=== PATIENT | female | born 1985 | race Caucasian/White ===

== ENCOUNTER → 2017-06-29 | Outpatient (CLI) | payer BC ==
[~2017-06-29] MED LIST: CETI10CA PO; CHOL200049 PO; CYCL10TA9 PO; DOXY100C2 PO; ESOM40SU PO; ETHINYL ESTRADIOL PC; FERR-57 PO; FLUO40CA PO; GABA800T2 PO; HYDR-623 PO; HYDR-700 PO; LNZ600T PO; METH-290 PO; METH4TAB PO; MORP30TA16 PO; MPR22TI TP; MUPI22OI TP; NAPR-243 PO; NORGESTIMATE PC; PANT20TA2 PO; PRD20T PO; SPRN25T GT
[2017-06-29 11:06] LABS: BASOPHILS # (AUTO) 0.1 10^3/uL (0.0-0.1); BASOPHILS % (AUTO) 1 % (0-10); EOSINOPHILS # (AUTO) 0.1 10^3/uL (0.0-0.3); EOSINOPHILS % (AUTO) 2 % (0-10); LYMPHOCYTES # (AUTO) 1.9 X 10^3 (1.0-4.0); LYMPHOCYTES % (AUTO) 30 % (12-44); MEAN CORPUSCULAR HEMOGLOBIN 28 PG (25-34); MEAN CORPUSCULAR HGB CONC 33 G/DL (32-36); MEAN CORPUSCULAR VOLUME 86 FL (80-99); MEAN PLATELET VOLUME 10.5 FL (7.4-10.4); MONOCYTES # (AUTO) 0.5 X 10^3 (0.0-1.0); MONOCYTES % (AUTO) 8 % (0-12); NEUTROPHILS # (AUTO) 3.9 X 10^3 (1.8-7.8); NEUTROPHILS % (AUTO) 60 % (42-75); PLATELET COUNT 297 10^3/uL (130-400); RED CELL DISTRIBUTION WIDTH 13.4 % (10.0-14.5); WHITE BLOOD COUNT 6.5 10^3/uL (4.3-11.0)
[2017-06-29 11:20] LABS: ALANINE AMINOTRANSFERASE 23 U/L (0-55); ALBUMIN 4.1 GM/DL (3.2-4.5); ANION GAP 8 MMOL/L (5-14); ASPARTATE AMINO TRANSFERASE 18 U/L (5-34); BILIRUBIN,TOTAL 0.5 MG/DL (0.1-1.0); BLOOD UREA NITROGEN 11 MG/DL (7-18); BUN/CREATININE RATIO 14; CALCIUM 8.9 MG/DL (8.5-10.1); CARBON DIOXIDE 26 MMOL/L (21-32); CHLORIDE 105 MMOL/L (98-107); CREATININE SERUM 0.78 MG/DL (0.60-1.30); GFR ESTIMATED > 60; GLUCOSE 112 MG/DL (70-105); POTASSIUM 3.9 MMOL/L (3.6-5.0); SODIUM 139 MMOL/L (135-145); URIC ACID 5.4 MG/DL (2.6-7.2)
[2017-06-29 11:40] LABS: ERYTHROCYTE SEDIMENTATION RATE 11 MM/HR (0-20)
[2017-06-29 11:41] LABS: THYROID STIMULATING HORMONE 2.36 UIU/ML (0.35-4.94)
== END ==
LOC: LAB 10:45
PROVIDERS: ATTEND Family Medicine
DX: Z83.3 Family history of diabetes mellitus; R53.83 Other fatigue; M25.50 Pain in unspecified joint
CPT/HCPCS: 36415; 80053; 83036; 84439; 84443; 84550; 85025; 85652

== ENCOUNTER 2018-05-20 20:08 | Emergency (ER) | payer BC ==
[~2018-05-20] VITALS: Ht 167.6 cm; Wt 113.4 kg
--- OUTSIDE RECORDS SUMMARY | 2018-05-20 20:13 | XMS REPORT ---
Author BERTHA Skinner [employer] Address Unknown Phone Unavailable Care Team Providers Care Reconciling Clerk Name Role Phone BERTHA PAYAN CP Unavailable Allergies, Adverse Reactions, Alerts Substance Reaction Event Type sulfa drugs Info Not Available Drug Allergy Problems Problem Type Condition Code Onset Dates Condition Status Assessment Encounter for dental examination Z01.20 Active Problem Encounter for dental examination Z01.20 Active Medications Medication Code System Code Instructions Start Date End Date Status Dosage Spironolactone [facility] [address]-60 25 MG Orally Twice a day 1 tablet Hydrocodone-Acetaminophen [facility] [address]-70 10-325 MG Orally every 6 hrs 1 tablet as needed Gabapentin [facility] [address]-87 800 MG Orally Three times a day 1 tablet ZyrTEC [facility] 0 not defined Vitamin D [facility] 70695[address]39 400 UNIT Orally Once a day 2 capsules BuPROPion HCl [facility] [address]-04 100 MG Orally Twice a day 1 tablet MS Contin [facility] [address]-59 30 MG Orally every 12 hrs 1 tablet Procedures Procedure Coding System Code Date INTRAORL-PERIAPICAL 1 FILM 60096 CPT-4 D0220 Oct 01, 2015 INTRAORL-PERIAPICAL EA ADD FILM CPT-4 D0230 Oct 01, 2015 COMP ORAL EVALUATION - NEW/EST PT CPT-4 D0150 Oct 01, 2015 BITEWINGS - FOUR FILMS CPT-4 D0274 Oct 01, 2015 INTRAORL-PERIAPICAL EA ADD FILM CPT-4 D0230 Oct 01, 2015 TOPICAL FLUORIDE VARNISH CPT-4 D1206 Oct 01, 2015 PROPHYLAXIS - ADULT CPT-4 D1110 Oct 01, 2015 Vital Signs Date/Time: Oct 01, 2015 Blood Pressure Diastolic 65 mmHg Blood Pressure Systolic 115 mmHg Cardiac Monitoring Heart Rate 96 bpm Results No Known Results Summary Purpose [employer] Submission
--- OUTSIDE RECORDS SUMMARY | 2018-05-20 20:13 | XMS REPORT ---
Author Author DADA MUIR [facility] Address [address] [place] [address] Care Team Providers Care Digital X Ray Service Engineer Name Role Phone DADA MUIR Unavailable PROBLEMS Type Condition ICD9-CM Code [id number] Code Onset Dates Condition Status SNOMED Code Problem Encounter for dental examination Z01.20 Active [id number] ALLERGIES Substance Reaction Event Type Date Status sulfa drugs Unknown Drug Allergy Oct, Active SOCIAL HISTORY No smoking Hx information available PLAN OF CARE VITAL SIGNS Height 66 in 2016-11-09 Weight 249.6 lbs 2016-11-09 Temperature 97.8 degrees Fahrenheit 2016-11-09 Heart Rate 88 bpm 2016-11-09 Respiratory Rate 20 2016-11-09 BMI 40.28 kg/m2 2016-11-09 Blood pressure systolic 126 mmHg 2016-11-09 Blood pressure diastolic 80 mmHg 2016-11-09 MEDICATIONS Medication Instructions Dosage Frequency Start Date End Date Duration Status Vitamin D 400 UNIT Orally Once a day 2 capsules 24h Active Spironolactone 25 MG Orally Twice a day 1 tablet 12h Active ZyrTEC Active Gabapentin 800 MG Orally Three times a day 1 tablet 8h Active Hydrocodone-Acetaminophen 10-325 MG Orally every 6 hrs 1 tablet as needed 6h Active RESULTS No Results PROCEDURES Procedure Date Ordered Related Diagnosis Body Site FLUARIX QUAD P-FREE 3 AND UP .50 2015Nov 09, 2016 SINGLE IMMUNIZATION ADMIN Nov 09, 2016 IMMUNIZATIONS Vaccine Route Administration Date Status FLUZONE QUAD 3 AND UP 0.50 2015 IM Intramuscular Nov 09, 2016 Administered
--- OUTSIDE RECORDS SUMMARY | 2018-05-20 20:14 | XMS REPORT | Continuity of Care Document ---
Author Author [facility] Organization [facility] Address Unknown Phone Unavailable Allergies Active Description Code Type Severity Reaction Onset Reported/Identified Relationship to Patient Clinical Status Yes Sulfa (Sulfonamide Antibiotics) [id number] Drug Allergy Unknown N/A 2011 Medications There is no data. 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 04/18/2012 Ot 338.29 OTHER CHRONIC PAIN 04/18/2012 Ot 682.2 CELLULITIS OF TRUNK 04/18/2012 Ot 707.8 CHRONIC SKIN ULCER NEC 04/18/2012 Ot 714.30 JUV RHEUM ARTHRITIS NOS 01/09/2015 Ot 285.9 01/09/2015 Ot 719.40 01/09/2015 Ot 733.90 01/09/2015 Ot 780.79 05/14/2015 BOB REY MD Ot 530.11 REFLUX ESOPHAGITIS 05/14/2015 BOB REY MD Ot 535.40 OTH SPECIFIED GASTRITIS,W/O MENTION OF H 05/14/2015 BOB REY MD Ot 535.50 UNSP GASTRITIS GASTRODUODENITIS W/O ME 05/14/2015 BOB REY MD Ot 553.3 DIAPHRAGMATIC HERNIA 06/23/2016 Ot 285.9 ANEMIA NOS 06/23/2016 Ot 719.40 JOINT PAIN- UNSPEC 06/23/2016 Ot 733.90 BONE CARTILAGE DIS NOS 06/23/2016 Ot 780.79 OTH MALAISE FATIGUE 06/23/2016 BOB REY MD Ot V72.84 EXAM PRE-OPERATIVE NOS 06/24/2016 ANGELINE MARTINEZ MD Ot M54.2 CERVICALGIA 06/24/2016 ANGELINE MARTINEZ MD Ot M54.5 LOW BACK PAIN 07/09/2016 ANGELINE MARTINEZ MD Ot M54.2 CERVICALGIA 07/09/2016 ANGELINE MARTINEZ MD Ot M54.5 LOW BACK PAIN 07/14/2016 ANGELINE MARTINEZ MD Ot M54.2 CERVICALGIA 07/14/2016 ANGELINE MARTINEZ MD Ot M54.5 LOW BACK PAIN 07/15/2016 ANGELINE MARTINEZ MD Ot M54.2 CERVICALGIA 07/15/2016 ANGELINE MARTINEZ MD Ot M54.5 LOW BACK PAIN 08/03/2016 ANGELINE MARTINEZ MD Ot M54.2 CERVICALGIA 08/03/2016 ANGELINE MARTINEZ MD Ot M54.5 LOW BACK PAIN 11/08/2016 Ot 285.9 ANEMIA NOS 11/08/2016 Ot 719.40 JOINT PAIN- UNSPEC 11/08/2016 Ot 733.90 BONE CARTILAGE DIS NOS 11/08/2016 Ot 780.79 OTH MALAISE FATIGUE 11/08/2016 BOB REY MD Ot V72.84 EXAM PRE-OPERATIVE NOS 11/08/2016 ANGELINE MARTINEZ MD Ot M54.2 CERVICALGIA 11/08/2016 ANGELINE MARTINEZ MD Ot M54.5 LOW BACK PAIN 11/08/2016 ANGELINE MARTINEZ MD Ot M54.2 CERVICALGIA 11/08/2016 ANGELINE MARTINEZ MD Ot M54.5 LOW BACK PAIN 11/17/2016 Ot 285.9 ANEMIA NOS 11/17/2016 Ot 719.40 JOINT PAIN- UNSPEC 11/17/2016 Ot 733.90 BONE CARTILAGE DIS NOS 11/17/2016 Ot 780.79 OTH MALAISE FATIGUE 11/17/2016 BOB REY MD Ot V72.84 EXAM PRE-OPERATIVE NOS 11/17/2016 ANGELINE MARTINEZ MD Ot M54.2 CERVICALGIA 11/17/2016 ANGELINE MARTINEZ MD Ot M54.5 LOW BACK PAIN 11/17/2016 ANGELINE MARTINEZ MD Ot M54.2 CERVICALGIA 11/17/2016 ANGELINE MARTINEZ MD Ot M54.5 LOW BACK PAIN 11/18/2016 ANGELINE MARTINEZ MD Ot M54.2 CERVICALGIA 11/18/2016 WHITE MD, ANGELINE J Ot M54.5 LOW BACK PAIN 06/29/2017 Ot 285.9 ANEMIA NOS 06/29/2017 Ot 719.40 JOINT PAIN- UNSPEC 06/29/2017 Ot 733.90 BONE CARTILAGE DIS NOS 06/29/2017 Ot 780.79 OTH MALAISE FATIGUE 06/29/2017 CANDIDO BRAYD, BOB Ot V72.84 EXAM PRE-OPERATIVE NOS 06/29/2017 ANGELINE MARTINEZ MD Ot M54.2 CERVICALGIA 06/29/2017 ANGELINE MARTINEZ MD Ot M54.5 LOW BACK PAIN 07/06/2017 ORENDER DO, BLANCA S Ot M25.50 PAIN IN UNSPECIFIED JOINT 07/06/2017 ORENDER DO, BLANCA S Ot R53.83 OTHER FATIGUE 07/06/2017 ORENDER DO, BLANCA S Ot Z83.3 FAMILY HISTORY OF DIABETES MELLITUS 07/20/2017 ORENDER DO, BLANCA S Ot M25.50 PAIN IN UNSPECIFIED JOINT 07/20/2017 ORENDER DO, BLANCA S Ot R53.83 OTHER FATIGUE 07/20/2017 ORENDER DO, BLANCA S Ot Z83.3 FAMILY HISTORY OF DIABETES MELLITUS Procedures There is no data. Results Test Result Range Complete blood count (CBC) with automated white blood cell (WBC) differential - 06/29/17 10:58 Blood leukocytes automated count (number/volume) 6.5 10*3/uL 4.3-11.0 Blood erythrocytes automated count (number/volume) 4.70 10*6/uL 4.35-5.85 Venous blood hemoglobin measurement (mass/volume) 13.2 g/dL 11.5-16.0 Blood hematocrit (volume fraction) 41 % 35-52 Automated erythrocyte mean corpuscular volume 86 [foz_us] 80-99 Automated erythrocyte mean corpuscular hemoglobin (mass per erythrocyte) 28 pg 25-34 Automated erythrocyte mean corpuscular hemoglobin concentration measurement ( mass/volume) 33 g/dL 32-36 Automated erythrocyte distribution width ratio 13.4 % 10.0-14.5 Automated blood platelet count (count/volume) 297 10*3/uL 130-400 Automated blood platelet mean volume measurement 10.5 [foz_us] 7.4-10.4 Automated blood neutrophils/100 leukocytes 60 % 42-75 Automated blood lymphocytes/100 leukocytes 30 % 12-44 Blood monocytes/100 leukocytes 8 % 0-12 Automated blood eosinophils/100 leukocytes 2 % 0-10 Automated blood basophils/100 leukocytes 1 % 0-10 Blood neutrophils automated count (number/volume) 3.9 10*3 1.8-7.8 Blood lymphocytes automated count (number/volume) 1.9 10*3 1.0-4.0 Blood monocytes automated count (number/volume) 0.5 10*3 0.0-1.0 Automated eosinophil count 0.1 10*3/uL 0.0-0.3 Automated blood basophil count (count/volume) 0.1 10*3/uL 0.0-0.1 Comprehensive metabolic panel - 06/29/17 10:58 Serum or plasma sodium measurement (moles/volume) 139 mmol/L 135-145 Serum or plasma potassium measurement (moles/volume) 3.9 mmol/L 3.6-5.0 Serum or plasma chloride measurement (moles/volume) 105 mmol/L 98-107 Carbon dioxide 26 mmol/L 21-32 Serum or plasma anion gap determination (moles/volume) 8 mmol/L 5-14 Serum or plasma urea nitrogen measurement (mass/volume) 11 mg/dL 7-18 Serum or plasma creatinine measurement (mass/volume) 0.78 mg/dL 0.60-1.30 Serum or plasma urea nitrogen/creatinine mass ratio 14 NRG Serum or plasma creatinine measurement with calculation of estimated glomerular filtration rate > NRG Serum or plasma glucose measurement (mass/volume) 112 mg/dL 70-105 Serum or plasma calcium measurement (mass/volume) 8.9 mg/dL 8.5-10.1 Serum or plasma total bilirubin measurement (mass/volume) 0.5 mg/dL 0.1-1.0 Serum or plasma alkaline phosphatase measurement (enzymatic activity/volume) 47 U/L 40-136 Serum or plasma aspartate aminotransferase measurement (enzymatic activity/ volume) 18 U/L 5-34 Serum or plasma alanine aminotransferase measurement (enzymatic activity/volume ) 23 U/L 0-55 Serum or plasma protein measurement (mass/volume) 7.0 g/dL 6.4-8.2 Serum or plasma albumin measurement (mass/volume) 4.1 g/dL 3.2-4.5 Serum or plasma uric acid measurement (mass/volume) - 06/29/17 10:58 Serum or plasma uric acid measurement (mass/volume) 5.4 mg/dL 2.6-7.2 Erythrocyte sedimentation rate by westergren method - 06/29/17 10:58 Erythrocyte sedimentation rate by westergren method 11 mm 0-20 THYROID STIMULATING HORMONE - 06/29/17 10:58 THYROID STIMULATING HORMONE 2.36 u[iU]/mL 0.35-4.94 Serum or plasma thyroxine (T4) free measurement (mass/volume) - 06/29/17 10:58 Serum or plasma thyroxine (T4) free measurement (mass/volume) 0.89 ng/dL 0.70-1.48 Hemoglobin A1c - 06/29/17 10:58 Hemoglobin A1c 5.1 % 4.5-6.2 Encounters ACCT No. Visit Date/Time Discharge Status Pt. Type Provider Facility Loc./Unit Complaint [id number] 06/29/2017 10:45:00 06/29/2017 23:59:59 CLS Outpatient BLANCA GARCIA DO [facility] LAB FATIGUE,FAMILIAL DNA,ARTHRALGIA [id number] 08/03/2016 13:51:00 08/03/2016 14:52:00 DIS Outpatient ANGELINE MARTINEZ MD [facility] REHAB CERVICALGIA; [place] [id number] 07/05/2016 13:33:00 07/09/2016 17:00:00 DIS Outpatient ANGELINE MARTINEZ MD [facility] REHAB CERVICALGIA; [place] [id number] 06/23/2016 15:45:00 06/23/2016 23:59:59 CLS Outpatient ANGELINE MARTINEZ MD [facility] RAD LOW BACK PAIN, CERVICALGIA [id number] 05/14/2015 08:33:00 05/14/2015 12:25:00 DIS Outpatient BOB REY MD [facility] SDC REFLUX [id number] 05/13/2015 05:56:00 05/13/2015 23:59:59 CLS Outpatient BOB REY MD [facility] PREOP REFLUX [id number] 12/26/2014 10:32:00 Document Registration [id number] 04/14/2012 13:37:00 Document Registration 06/201605/01/2018 12:34:43 05/01/2018 23:59:59 [facility] Outpatient Blanca Garcia
--- OUTSIDE RECORDS SUMMARY | 2018-05-20 20:14 | XMS REPORT ---
Author Author ANGELINE MASON Organization [employer] Address Unknown Phone Unavailable Care Team Providers Care Ecology Teacher Name Role Phone ANGELINE MASON CP Unavailable Allergies No Known Allergies Problems Problem Type Condition Code Onset Dates Condition Status Problem Encounter for dental examination Z01.20 Active Medications Medication Code System Code Instructions Start Date End Date Status Dosage Amoxicillin [facility] [address]-40 500 MG Orally Every 6 houyrs Oct 01, 2015 Oct 11, 2015 1 capsule Results No Known Results Summary Purpose eClinicalWorks Submission
[2018-05-20 20:36] LABS: BILIRUBIN,URINE NEGATIVE (NEGATIVE); CLARITY,URINE SLIGHTLY CLOUDY; COLOR,URINE YELLOW; GLUCOSE, URINE (UA) NEGATIVE (NEGATIVE); KETONES,URINE 1+ (NEGATIVE); LEUKOCYTE ESTERASE ,URINE 3+ (NEGATIVE); NITRITE,URINE NEGATIVE (NEGATIVE); PH,URINE 6 (5-9); PROTEIN,URINE 1+ (NEGATIVE); UROBILINOGEN,URINE NORMAL (NORMAL)
[2018-05-20 20:48] LABS: BACTERIA,URINE TRACE /HPF
[2018-05-20] MEDS ORDERED: fentaNYL INJECTION 100 MCG/2 ML AMP IVP ONE ×2 (21:00→23:15)
--- NOTE | 2018-05-20 21:04 | ED General ---
General Chief Complaint: Abdominal/GI Problems Stated Complaint: PAIN IN BACK AND ABD,SOB Nursing Triage Note: Pt ambulated to rm 5 w/o difficulty. Pt c/o lower back pain that radiates to the abdomen bilateraly. 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 Pt denies bowel or bladder problems. Pt states she take hydrocodone 10/325 and double up on a dose and it did not help the pain at all. Nursing Sepsis Screen: No Definite Risk Source of Information: Patient Exam Limitations: No Limitations History of Present Illness Date Seen by Provider: May 20, 2018 Time Seen by Provider: 20:22 Initial Comments This 32-year-old woman presents to the emergency room with lower back pain radiating to the bilateral flanks and upper abdomen since yesterday. 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 Patient has chronic pain but states all of her usual methods of controlling pain have not worked. This includes heating pad, hydrocodone, naproxen, gabapentin, and Flexeril. She denies withdrawing from any of these medications. Her pain is worse with deep inspiration and is minimally impacted by palpation of the abdomen. She denies any nausea, vomiting , or constipation. She did have some diarrhea over the last 24 hours which is common for her if she does not sleep well. She denies any urinary or vaginal symptoms. Last menstrual period was April 25. She has reported history of rheumatoid arthritis, fibromyalgia, hiatal hernia and hypothyroidism. She does not see a aluminum polisher. Dr. Garcia is her primary care doctor. Allergies and Home Medications Allergies Coded Allergies: Sulfa (Sulfonamide Antibiotics) (Verified Allergy, Unknown, 04/14/12) Home Medications Cephalexin 500 Mg Capsule, 500 MG PO QID Prescribed by: NIKKI BERRIOS on 05/21/18 0055 Cetirizine Hcl 10 Mg Capsule, 10 MG PO BID, (Reported) Cholecalciferol (Vitamin D3) 2,000 Unit Tablet, 5,000 UNIT PO DAILY, (Reported) Ferrous Sulfate 325 Mg Tablet, 325 MG PO DAILY, (Reported) Fluoxetine Hcl 40 Mg Capsule, 1 EACH PO DAILY, (Reported) Gabapentin 800 Mg Tablet, 1 EACH PO BID, (Reported) Hydrocodone Bit/Acetaminophen 1 Tab Tablet, 1 EACH PO QID PRN for PAIN, ( Reported) Methylphenidate Hcl 10 Mg Tablet.sa, 10 MG PO DAILY, (Reported) Morphine Sulfate 30 Mg Tablet, 1 EACH PO Q12HR, (Reported) Pantoprazole Sodium 20 Mg Tablet.dr, 40 MG PO DAILY Prescribed by: BOB REY on 05/14/15 1149 Spironolactone 25 Mg Tab, 25 MG GT DAILY, (Reported) [Orthotri-Cyclen] , 28 MG PC DAILY, (Reported) Patient Home Medication List Home Medication List Reviewed: Yes Review of Systems Constitutional: no symptoms reported EENTM: see HPI Respiratory: see HPI Cardiovascular: no symptoms reported Gastrointestinal: see HPI Genitourinary: no symptoms reported : No LMP: May 26, 2018 Musculoskeletal: no symptoms reported Skin: no symptoms reported Psychiatric/Neurological: Tremors Hematologic/Lymphatic: No Symptoms Reported Immunological/Allergic: see HPI Past Nbpuqjv-Xcwzbj-Bypwac Hx Past Med/Social Hx: Reviewed and Corrections made Patient Social History Alcohol Use: Occasionally Uses Recreational Drug Use: No 2nd Hand Smoke Exposure: No Recent Foreign Travel: No Contact w/Someone Who Travel: No Recent Infectious Disease Expo: No Recent Hopitalizations: Yes ([employer] CHILD) Physical Abuse: No Sexual Abuse: No Immunizations Up To Date Date of Pneumonia Vaccine: Sep 18, 2014 Past Medical History Surgeries: No Respiratory: Yes Asthma Cardiac: Yes (HEART MURMUR) Heart Murmur Neurological: No : No Last Menstrual Period: Apr 25, 2018 Reproductive Disorders: Yes (PCOS) Genitourinary: No Gastrointestinal: Yes (REFLUX/ABD.PAIN) Gastroesophageal Reflux, Hiatal Hernia Musculoskeletal: Yes Fibromyalgia, Rheumatoid Arthritis, Chronic Back Pain Endocrine: Yes Hypothyroidsim HEENT: No Cancer: No Psychosocial: Yes Depression Nursing Suicide Risk Score: 0 Integumentary: No Blood Disorders: No Physical Exam Vital Signs Vital Signs - First Documented 05/20/18 20:12 Temp 98.8 Pulse 97 Resp 14 B/P (MAP) 164/101 (122) Pulse Ox 97 O2 Delivery Room Air Capillary Refill : Less Than 3 Seconds Height, Weight, BMI Height: 5'6.00" Weight: 250lbs. oz. 113.366505kh; BMI Method:Stated General Appearance: WD/WN, Anxious, Mild Distress, Obese HEENT: PERRL/EOMI, Other (oropharynx somewhat dry) Neck: Normal Inspection Respiratory: Lungs Clear, Normal Breath Sounds, No Accessory Muscle Use, No Respiratory Distress Cardiovascular: No Edema, No Murmur, Tachycardia (regular) Gastrointestinal: Normal Bowel Sounds, Soft, Tenderness (minimal across the upper abdomen) Back: Normal Inspection, No CVA Tenderness, No Vertebral Tenderness Extremity: Normal Inspection Neurologic/Psychiatric: Alert, Oriented x3, No Motor/Sensory Deficits, Normal Mood/Affect, jukebox checker II-XII Norm as Tested, Other (mild tremor of the extremities noted) Skin: Normal Color, Diaphoresis Progress/Results/Core Measures Suspected Sepsis Recent Fever Within 48 Hours: No Infection Criteria Present: None New/Unexplained Altered Menta: No Sepsis Screen: No Definite Risk SIRS Temperature:98.8 Pulse: 97 Respiratory Rate: 14 Laboratory Tests 05/20/18 21:00: White Blood Count 10.2 Blood Pressure 164 /101 Mean: 122 Laboratory Tests 05/20/18 21:00: Creatinine 0.74, Platelet Count 339, Total Bilirubin 0.4 Results/Orders Lab Results Laboratory Tests Test 05/20/18 20:27 05/20/18 21:00 Range/Units Urine Color YELLOW Urine Clarity SLIGHTLY CLOUDY Urine pH 6 5-9 Urine Specific [place] 1.020 1.016-1.022 Urine Protein 1+ H NEGATIVE Urine Glucose (UA) NEGATIVE NEGATIVE Urine Ketones 1+ H NEGATIVE Urine Nitrite NEGATIVE NEGATIVE Urine Bilirubin NEGATIVE NEGATIVE Urine Urobilinogen NORMAL NORMAL MG/DL Urine Leukocyte Esterase 3+ H NEGATIVE Urine RBC (Auto) NEGATIVE NEGATIVE Urine RBC NONE /HPF Urine WBC 10-20 /HPF Urine Squamous Epithelial Cells 5-10 /HPF Urine Crystals NONE /LPF Urine Bacteria TRACE /HPF Urine Casts NONE /LPF Urine Mucus NEGATIVE /LPF Urine Culture Indicated YES Urine Opiates Screen POSITIVE H NEGATIVE Urine Oxycodone Screen NEGATIVE NEGATIVE Urine Methadone Screen NEGATIVE NEGATIVE Urine Propoxyphene Screen NEGATIVE NEGATIVE Urine Barbiturates Screen NEGATIVE NEGATIVE Ur Tricyclic Antidepressants Screen POSITIVE H NEGATIVE Urine Phencyclidine Screen NEGATIVE NEGATIVE Urine Amphetamines Screen NEGATIVE NEGATIVE Urine Methamphetamines Screen NEGATIVE NEGATIVE Urine Benzodiazepines Screen NEGATIVE NEGATIVE Urine Cocaine Screen NEGATIVE NEGATIVE Urine Cannabinoids Screen NEGATIVE NEGATIVE White Blood Count 10.2 4.3-11.0 10^3/uL Red Blood Count 4.08 L 4.35-5.85 10^6/uL Hemoglobin 11.1 L 11.5-16.0 G/DL Hematocrit 35 35-52 % Mean Corpuscular Volume 85 80-99 FL Mean Corpuscular Hemoglobin 27 25-34 PG Mean Corpuscular Hemoglobin Concent 32 32-36 G/DL Red Cell Distribution Width 14.0 10.0-14.5 % Platelet Count 339 130-400 10^3/uL Mean Platelet Volume 10.9 H 7.4-10.4 FL Neutrophils (%) (Auto) 83 H 42-75 % Lymphocytes (%) (Auto) 10 L 12-44 % Monocytes (%) (Auto) 5 0-12 % Eosinophils (%) (Auto) 1 0-10 % Basophils (%) (Auto) 0 0-10 % Neutrophils # (Auto) 8.4 H 1.8-7.8 X 10^3 Lymphocytes # (Auto) 1.1 1.0-4.0 X 10^3 Monocytes # (Auto) 0.5 0.0-1.0 X 10^3 Eosinophils # (Auto) 0.1 0.0-0.3 10^3/uL Basophils # (Auto) 0.0 0.0-0.1 10^3/uL D-Dimer < 0.22 0.00-0.49 UG/ML Sodium Level 138 135-145 MMOL/L Potassium Level 4.4 3.6-5.0 MMOL/L Chloride Level 107 98-107 MMOL/L Carbon Dioxide Level 21 21-32 MMOL/L Anion Gap 10 5-14 MMOL/L Blood Urea Nitrogen 11 7-18 MG/DL Creatinine 0.74 0.60-1.30 MG/DL Estimat Glomerular Filtration Rate > 60 BUN/Creatinine Ratio 15 Glucose Level 125 H 70-105 MG/DL Calcium Level 9.7 8.5-10.1 MG/DL Corrected Calcium 9.5 8.5-10.1 MG/DL Total Bilirubin 0.4 0.1-1.0 MG/DL Aspartate Amino Transf (AST/SGOT) 17 5-34 U/L Alanine Aminotransferase (ALT/SGPT) 18 0-55 U/L Alkaline Phosphatase 44 40-136 U/L Total Protein 6.8 6.4-8.2 GM/DL Albumin 4.2 3.2-4.5 GM/DL Lipase 9 8-78 U/L Thyroid Stimulating Hormone (TSH) 0.83 0.35-4.94 UIU/ML Free Thyroxine 1.11 0.70-1.48 NG/DL Serum Test, Qualitative NEGATIVE NEGATIVE Micro Results Microbiology 05/20/18 Urine Culture - Final, Complete NO GROWTH My Orders Orders - NIKKI LOWRY MD Ua Culture If Indicated (05/20/18 20:15) Cbc With Automated Diff (05/20/18 20:46) Comprehensive Metabolic Panel (05/20/18 20:46) Hcg,Qualitative Serum (05/20/18 20:46) Lipase (05/20/18 20:46) Saline Lock/Iv-Start (05/20/18 20:46) Chest Pa/Lat (2 View) (05/20/18 20:46) Abdomen, Flat & Upright/Decub (05/20/18 20:46) Fentanyl Injection (Sublimaze Injection (05/20/18 21:00) Drug Screen Stat (Urine) (05/20/18 20:46) Urine Culture (05/20/18 20:27) Thyroid Stimulating Hormone (05/20/18 21:04) Free T4 (Free Thyroxine) (05/20/18 21:04) Lidocaine 2% Viscous 15 Ml (Xylocaine Vi (05/20/18 22:00) Antacid Suspension (Mylanta Suspension (05/20/18 22:00) Fentanyl Injection (Sublimaze Injection (05/20/18 23:15) Fibrin Degradation Products (05/20/18 23:06) Ketorolac Injection (Toradol Injection) (05/21/18 01:00) Oxycodone/Apap 5/325mg Tablet (Percocet (05/21/18 01:00) Cephalexin Capsule (Keflex Capsule) (05/21/18 01:00) Medications Given in ED Vital Signs/I&O Capillary Refill : Less Than 3 Seconds Blood Pressure Mean: 122 Progress Note #1: Time: 21:11 Progress Note Patient seen and examined. Pain initially treated with fentanyl. Labs and x- rays ordered. Progress Note #2: Time: 21:57 Progress Note Workup so far is unimpressive. Patient states fentanyl helped the pain in her back but her upper abdomen is still hurting. A GI cocktail has been ordered as pain may be related to her hiatal hernia or other GI etiology. Progress Note #3: Time: 23:10 Progress Note Patient had very modest improvement in pain with GI cocktail. We discussed possible etiologies for her pain and a d-dimer was ordered because of pain with inspiration and mild tachycardia. Fentanyl was ordered for further pain management. Progress Note #4: Time: 01:05 Progress Note D-dimer was negative. I discussed further workup which might include a CT of the chest and/or abdomen. After discussion of risks and benefits, patient declines further workup. She will monitor her condition at home and return if symptoms worsen. Antibiotics were prescribed for suspected UTI. Toradol and oxycodone were given for further pain control. Abdominal x-ray report mention possible mild constipation but this is not really consistent with patient's history. Diagnostic Imaging Diagonstic Imaging: Xray Plain Films/CT/US/NM/MRI: chest Comments Chest x-ray viewed by me and report reviewed. See report below: NAME: MARIA LUZ DILLON MED REC#: [id number] PT STATUS: DEP ER : 1985 PHYSICIAN: NIKKI LOWRY MD ADMIT DATE: 05/20/18/ER Signed Date of Exam: 05/20/18 CHEST PA/LAT (2 VIEW) INDICATION: Back pain COMPARISON: 09/26/2009 FINDINGS: Frontal and lateral views of the chest demonstrate clear lungs bilaterally. The heart is normal. There is no pneumothorax. The osseous structures normal. IMPRESSION: Negative chest. Dictated by: Dictated on workstation # [id number] Dict: 05/21/18 0628 Trans: 05/21/18 1210 Interpreted by: SAI RAI Electronically signed by: SAI RAI 05/21/18 1210 Diagonstic Imaging: Xray Plain Films/CT/US/NM/MRI: abdomen, pelvis Comments Abdominal x-ray viewed by me and report reviewed. See report below: NAME: MARIA LUZ DILLON MED REC#: [id number] PT STATUS: DEP ER : 1985 PHYSICIAN: NIKKI LOWRY MD ADMIT DATE: 05/20/18/ER Signed Date of Exam: 05/20/18 ABDOMEN, FLAT & UPRIGHT/DECUB INDICATION: Back pain COMPARISON: None. FINDINGS: KUB and upright views of abdomen demonstrate mild constipation without obstruction or ileus. There is no free air. Osseous structures are age-appropriate. There are no abnormal calcifications. IMPRESSION: Mild constipation. Dictated by: Dictated on workstation # [id number] Dict: 05/21/18 0708 Trans: 05/21/18 120 Interpreted by: SAI RAI Electronically signed by: SAI RAI 05/21/18 1209 Departure Impression Primary Impression: Upper abdominal pain Additional Impressions: Lower back pain Qualified Codes: M54.5 - Low back pain Urinary tract infection Qualified Codes: N39.0 - Urinary tract infection, site not specified Disposition: HOME, SELF-CARE Condition: Improved Departure-Patient Inst. Decision time for Depature: 00:53 Referrals: BLANCA GARCIA DO (PCP/Family) Primary Care Physician Patient Instructions: Acute Abdomen (Belly Pain), Adult (DC) Add. Discharge Instructions: The exact cause of your pain is uncertain. Please return to care if you have worsening symptoms or develop new symptoms such as vomiting, fever greater than 100, etc. There was some subtle suggestion of infection in your urinalysis. Please take your antibiotic as prescribed and contact your primary care provider on Tuesday to review urine culture results. Also follow-up with your primary care provider for a visit in the clinic as soon as possible. You may continue using your usual pain medications at home. All discharge instructions reviewed with patient and/or family. Voiced understanding. Scripts Cephalexin (Keflex) 500 Mg Capsule 500 MG PO QID, #28 CAP Prov: NIKKI LOWRY MD 05/21/18 Copy Copies To 1: BLANCA GARCIA JOSHUA T MD May 20, 2018 21:04
[2018-05-20 21:07] LABS: AMPHETAMINE SCREEN, URINE NEGATIVE (NEGATIVE); BARBITURATE SCREEN URINE NEGATIVE (NEGATIVE); BENZODIAZEPINES SCREEN URINE NEGATIVE (NEGATIVE); CANNABINOID SCREEN, URINE NEGATIVE (NEGATIVE); COCAINE SCREEN URINE NEGATIVE (NEGATIVE); METHADONE STAT NEGATIVE (NEGATIVE); METHAMPHETAMINE SCREEN URINE S NEGATIVE (NEGATIVE); OPIATE SCREEN URINE POSITIVE (NEGATIVE); OXYCODONE STAT NEGATIVE (NEGATIVE); PROPOXYPHENE STAT NEGATIVE (NEGATIVE); TRICYCLIC ANTIDEPRESSANTS SCRE POSITIVE (NEGATIVE)
[2018-05-20 21:11] LABS: BASOPHILS % (AUTO) 0 % (0-10); EOSINOPHILS # (AUTO) 0.1 10^3/uL (0.0-0.3); EOSINOPHILS % (AUTO) 1 % (0-10); HEMATOCRIT 35 % (35-52); HEMOGLOBIN 11.1 G/DL (11.5-16.0); LYMPHOCYTES # (AUTO) 1.1 X 10^3 (1.0-4.0); LYMPHOCYTES % (AUTO) 10 % (12-44); MEAN CORPUSCULAR HEMOGLOBIN 27 PG (25-34); MEAN CORPUSCULAR HGB CONC 32 G/DL (32-36); MEAN CORPUSCULAR VOLUME 85 FL (80-99); MEAN PLATELET VOLUME 10.9 FL (7.4-10.4); MONOCYTES # (AUTO) 0.5 X 10^3 (0.0-1.0); MONOCYTES % (AUTO) 5 % (0-12); NEUTROPHILS # (AUTO) 8.4 X 10^3 (1.8-7.8); NEUTROPHILS % (AUTO) 83 % (42-75); PLATELET COUNT 339 10^3/uL (130-400); RED BLOOD COUNT 4.08 10^6/uL (4.35-5.85); WHITE BLOOD COUNT 10.2 10^3/uL (4.3-11.0)
[2018-05-20 21:30] LABS: ALANINE AMINOTRANSFERASE 18 U/L (0-55); ALBUMIN 4.2 GM/DL (3.2-4.5); ALKALINE PHOSPHATASE 44 U/L (40-136); BILIRUBIN,TOTAL 0.4 MG/DL (0.1-1.0); BUN/CREATININE RATIO 15; CALCIUM 9.7 MG/DL (8.5-10.1); CARBON DIOXIDE 21 MMOL/L (21-32); CHLORIDE 107 MMOL/L (98-107); CREATININE SERUM 0.74 MG/DL (0.60-1.30); GFR ESTIMATED > 60; GLUCOSE 125 MG/DL (70-105); LIPASE 9 U/L (8-78); POTASSIUM 4.4 MMOL/L (3.6-5.0); SODIUM 138 MMOL/L (135-145); TOTAL PROTEIN 6.8 GM/DL (6.4-8.2)
[2018-05-20 21:52] LABS: FREE T4 (FREE THYROXINE) 1.11 NG/DL (0.70-1.48)
[2018-05-20] MEDS ORDERED: LIDOCAINE 2% VISCOUS 15 ML UDC PO ONE (22:00)
[2018-05-20] MEDS ORDERED: ANTACID SUSP 30 ML UDC (MYLANTA) PO ONE (22:00)
[2018-05-21] MEDS ORDERED: CEPH-507 PO (00:55)
[2018-05-21] MEDS ORDERED: oxyCODONE/APAP 5/325MG (PERCOCET 5) TABLET PO ONE (01:00)
[2018-05-21] MEDS ORDERED: CEPHALEXIN 250 MG (KEFLEX) CAP PO ONE (01:00)
[2018-05-21] MEDS ORDERED: KETOROLAC 30 MG/ML VIAL IVP ONE (01:00)
[2018-05-21 01:09] VITALS: BP 135/88
--- NOTE | 2018-05-21 06:45 | Diagnostic Imaging Report ---
INDICATION: Back pain COMPARISON: 09/26/2009 FINDINGS: Frontal and lateral views of the chest demonstrate clear lungs bilaterally. The heart is normal. There is no pneumothorax. The osseous structures normal. IMPRESSION: Negative chest. Dictated by: Dictated on workstation # [id number]
--- NOTE | 2018-05-21 07:10 | Diagnostic Imaging Report ---
INDICATION: Back pain COMPARISON: None. FINDINGS: KUB and upright views of abdomen demonstrate mild constipation without obstruction or ileus. There is no free air. Osseous structures are age-appropriate. There are no abnormal calcifications. IMPRESSION: Mild constipation. Dictated by: Dictated on workstation # [id number]
== END 2018-05-21 01:09 | disposition home or self-care (01) ==
LOC: EDUNIT# 20:08 → ER 20:10
DX: N39.0 Urinary tract infection, site not specified (principal); M54.5 Low back pain; M06.9 Rheumatoid arthritis, unspecified; J45.909 Unspecified asthma, uncomplicated; K21.9 Gastro-esophageal reflux disease without esophagitis; F32.9 Major depressive disorder, single episode, unspecified; E03.9 Hypothyroidism, unspecified; Z87.19 Personal history of other diseases of the digestive system; Z88.2 Allergy status to sulfonamides; Z79.02 Long term (current) use of antithrombotics/antiplatelets
CPT/HCPCS: 36415; 71046; 74019; 80053; 80306; 81000; 83690; 84439; 84443; 84703; 85025; 85379; 87088; 96374; 96375; 96376

== ENCOUNTER 2020-07-18 10:59 | Outpatient (CLI) | payer OTHER ==
[2020-07-18] VITALS (7 sets, daily range): BP systolic 100–126; BP diastolic 58–69
[~2020-07-18] VITALS: Ht 162 cm; Wt 110000.0 kg
[~2020-07-18 10:59] MED LIST changes: +CEPH-507 PO
[2020-07-18] MEDS ORDERED: NS IV 500 ML 500 ML IV ONE (11:30)
[2020-07-18 12:09] LABS: BASOPHILS # (AUTO) 0.1 10^3/uL (0.0-0.1); BASOPHILS % (AUTO) 1 % (0-10); EOSINOPHILS # (AUTO) 0.1 10^3/uL (0.0-0.3); EOSINOPHILS % (AUTO) 2 % (0-10); HEMATOCRIT 22 % (35-52); LYMPHOCYTES # (AUTO) 1.5 10^3/uL (1.0-4.0); LYMPHOCYTES % (AUTO) 21 % (12-44); MEAN CORPUSCULAR HEMOGLOBIN 19 pg (25-34); MEAN CORPUSCULAR HGB CONC 26 g/dL (32-36); MEAN CORPUSCULAR VOLUME 73 fL (80-99); MEAN PLATELET VOLUME 10.8 fL (9.0-12.2); MONOCYTES # (AUTO) 0.6 10^3/uL (0.0-1.0); MONOCYTES % (AUTO) 8 % (0-12); NEUTROPHILS # (AUTO) 4.8 10^3/uL (1.8-7.8); NEUTROPHILS % (AUTO) 69 % (42-75); PLATELET COUNT 393 10^3/uL (130-400); WHITE BLOOD COUNT 7.1 10^3/uL (4.3-11.0)
[2020-07-18 12:11] LABS: HEMOGLOBIN 5.8 g/dL (11.5-16.0)
[2020-07-18 12:28] LABS: ANISOCYTOSIS MODERATE; BAND NEUTROPHILS 0 %; BASOPHILS % (MANUAL) 1 %; EOSINOPHILS % (MANUAL) 2 %; HYPOCHROMASIA MODERATE; LYMPHOCYTES % (MANUAL) 25 %; MICROCYTOSIS SLIGHT; MONOCYTES % (MANUAL) 5 %; NEUTROPHILS % (MANUAL) 67 %; POLYCHROMASIA MODERATE
[2020-07-18 12:41] LABS: ALANINE AMINOTRANSFERASE 10 U/L (0-55); ALBUMIN 3.7 GM/DL (3.2-4.5); ALKALINE PHOSPHATASE 47 U/L (40-136); BILIRUBIN,TOTAL 0.2 MG/DL (0.1-1.0); BUN/CREATININE RATIO 19; CALCIUM 8.3 MG/DL (8.5-10.1); CARBON DIOXIDE 22 MMOL/L (21-32); CHLORIDE 105 MMOL/L (98-107); GFR ESTIMATED > 60; GLUCOSE 103 MG/DL (70-105); SODIUM 138 MMOL/L (135-145); TOTAL PROTEIN 6.1 GM/DL (6.4-8.2)
[2020-07-18 13:02] LABS: FREE T4 (FREE THYROXINE) 0.82 NG/DL (0.70-1.48)
[2020-07-18 17:28] LABS: HEMOGLOBIN 7.5 g/dL (11.5-16.0)
== END 2020-07-18 17:30 ==
LOC: SDC 10:59
PROVIDERS: ATTEND Family Medicine
DX: D64.9 Anemia, unspecified (principal); E55.9 Vitamin D deficiency, unspecified; E53.8 Deficiency of other specified B group vitamins; M25.50 Pain in unspecified joint
CPT/HCPCS: 36430; 80053; 82652; 83540; 84439; 84443; 85007; 85014; 85018; 85027; 86141; 86850; 86900; 86901; 86920; P9016; 36415

== ENCOUNTER 2020-08-01 10:16 | Outpatient (RCR) | payer OTHER ==
[2020-07-25] MEDS: FERRIC CARBOXYMALTOSE INJ 750 MG in NS (IVPB) 250 ML IV SCH (10:45)
[2020-07-25 11:50] VITALS: BP 134/71
[~2020-08-01] VITALS: Ht 170.2 cm; Wt 108.6 kg
[2020-08-01 11:00] VITALS: BP 124/66
[2020-08-01] MEDS: FERRIC CARBOXYMALTOSE INJ 750 MG in NS (IVPB) 250 ML IV SCH (11:42)
== END 2020-08-01 12:15 | disposition home or self-care (01) ==
LOC: SDC 10:16
PROVIDERS: ATTEND Family Medicine
DX: D50.9 Iron deficiency anemia, unspecified (principal)
CPT/HCPCS: 96365

== ENCOUNTER 2020-08-29 05:42 | Outpatient (RCR) | payer OTHER ==
[~2020-08-29] VITALS: Ht 167 cm; Wt 106.8 kg
[~2020-08-29 05:42] MED LIST changes: +BIOT10005 PO; +BUPR200T34 PO; +CETI10TA49 PO; +CHOL500050 PO; +DOCU-143 PO; +GABA800T10 PO; +HYDR-3820 PO; +LEVO50TA6 PO; +NAPR-915 PO; +PANT40TA52 PO; +SPIR50TA4 PO
== END 2020-08-29 09:32 | disposition home or self-care (01) ==
LOC: PREOP 05:42
PROVIDERS: ATTEND Surgery
DX: Z01.818 Encounter for other preprocedural examination (principal); D64.9 Anemia, unspecified; R19.5 Other fecal abnormalities; Z20.828 Contact with and (suspected) exposure to other viral communicable diseases
CPT/HCPCS: 87635

== ENCOUNTER 2020-09-02 10:49 | Day surgery (SDC) | payer OTHER ==
[~2020-09-02] VITALS: Ht 167 cm; Wt 106.8 kg
[2020-09-02] MEDS ORDERED: LACTATED RINGERS 1,000 ML IV ONE (10:57)
[2020-09-02] MEDS ORDERED: LACTATED RINGERS 1,000 ML IV STA (11:04)
[2020-09-02] MEDS ORDERED: HURRICAINE EXT TUBE (BENZOCAINE) XX PRN (11:15)
[2020-09-02 11:31] VITALS: BP 122/85
--- NOTE | 2020-09-02 11:41 | Progress Note-Pre Operative ---
Pre-Operative Progress Note H&P Reviewed The H&P was reviewed, patient examined and no changes noted. Date Seen by Provider: Sep 02, 2020 Time Seen by Provider: 11:41 Date H&P Reviewed: Sep 02, 2020 Time H&P Reviewed: 11:41 Pre-Operative Diagnosis: anemia, occult + stool GEMINI LOBO DO Sep 02, 2020 11:41
[2020-09-02] MEDS ORDERED: PROPOFOL INJECTION 50 ML IV ONE ×2 (12:30→12:56)
[2020-09-02] MEDS ORDERED: MIDAZOLAM 2 MG/2 ML (VERSED) VIAL ONE (12:30)
[2020-09-02 13:05] VITALS: BP 109/59
[2020-09-02 13:10] VITALS: BP 120/69
[2020-09-02 13:15] VITALS: BP 114/57
--- NOTE | 2020-09-02 13:26 | Progress Note-Post Operative ---
Post-Operative Progess Note Surgeon (s)/Long Goods Drier (s) Surgeon GEMINI LOBO DO Long Goods Drier: na Pre-Operative Diagnosis anemia, occult + stool Post-Operative Diagnosis antral ulcer Procedure & Operative Findings Date of Procedure 09/02/20 Procedure Performed/Findings egd c biopsy antral ulcer, colonoscopy Anesthesia Type per home delivery driver Estimated Blood Loss Estimated blood loss (mL): none Specimens/Packing Specimens Removed antral ulcer biopsy GEMINI LOBO DO Sep 02, 2020 13:26
[2020-09-02 13:30] VITALS: BP 99/41
[2020-09-02] MEDS ORDERED: SUCR1TAB36 PO (13:34)
--- NOTE | 2020-09-02 13:34 | Discharge Inst-Simple/Standard ---
Discharge Inst-Standard Discharge Medications New, Converted or Re-Newed RX: Transmitted to Pharmacy Patient Instructions/Follow Up Plan of Care/Instructions/FU: 2 weeks [place] Activity as Tolerated: Yes Discharge Diet: Regular Diet GEMINI LOBO DO Sep 02, 2020 13:34
[2020-09-02 13:48] VITALS: BP 99/41
--- NOTE | 2020-09-02 14:54 | Anesthesia-General Post-Op ---
MAC Patient Condition Mental Status/LOC: Same as Preop Cardiovascular: Satisfactory Nausea/Vomiting: Absent Respiratory: Satisfactory Pain: Controlled Complications: Absent Post Op Complications Complications None Follow Up Care/Instructions Patient Instructions None needed. Anesthesiology Discharge Order Discharge Order Patient is doing well, no complaints, stable vital signs, no apparent adverse anesthesia problems. No complications reported per nursing. ANTONIO RUBIO CRNA Sep 02, 2020 14:54
--- NOTE | 2020-09-02 20:48 | OPERATIVE REPORT ---
DATE OF SERVICE: 09/02/2020 PREOPERATIVE DIAGNOSES: Occult positive stool, anemia. POSTOPERATIVE DIAGNOSES: Antral ulcer, normal colon. PROCEDURE: Esophagogastroduodenoscopy with biopsy of antral ulcer, colonoscopy. SURGEON: Gemini Sheikh DO ANESTHESIA: Per CUFF CUTTER. ESTIMATED BLOOD LOSS: None. COMPLICATIONS: None. INDICATIONS: The patient is a 34-year-old female with epigastric abdominal pain and was found anemic and with occult positive. She understands risks and benefits of procedure and wished to proceed with procedure. Consent was signed in the chart. DESCRIPTION OF PROCEDURE: The patient was taken to the endoscopy suite, placed in left lateral recumbent position. Timeout was performed. Scope was inserted in mouth, down the esophagus, stomach and into the duodenum without difficulty. There were no polyps, masses or ulcerations within the duodenum. Scope was slowly retracted back into the stomach where it was further insufflated. In the antrum, small ulceration with irritation present, appears to be partial thickness present. No active bleeding. Biopsy was obtained of the antral ulcer. There were no other polyps, masses or ulcerations. Scope was retroflexed noting no other pathology. Scope was returned to its normal position, slowly withdrawn to distal esophagus, which had normal appearance. No polyps, masses or ulcerations. Scope was slowly retracted back until completely removed. Digital rectal exam was performed. No palpable polyps, masses or ulcerations. Scope was inserted in the rectum and advanced all the way to the cecum with minimal difficulty. Prep was adequate. Scope was then slowly retracted back. No polyps, masses or ulcerations within the cecum, ascending, transverse, descending and sigmoid colon. Once in the rectum, scope was retroflexed noting no other pathology. Scope was returned to its normal position, slowly withdrawn until completely removed. The patient tolerated procedure well without any complications. She was taken to recovery room in stable condition. RECOMMENDATIONS: The patient recommended to stop naproxen. She is to continue on the Protonix. We will add Carafate 1 gram four times a day. The patient will follow up on pathology in two weeks. Any issues before that will be seen at that time. Repeat colonoscopy per screening guidelines or if she becomes symptomatic. We consider repeating endoscopy to reevaluate. Job ID: [id number] DocumentID: [id number] Dictated Date: 09/02/2020 15:15:53 [place] Farmer Date: 09/02/2020 20:48:09 Dictated By: GEMINI SHEIKH DO
== END 2020-09-02 13:52 | disposition home or self-care (01) ==
LOC: ENDO 10:49
PROVIDERS: ATTEND Surgery
DX: K25.9 Gastric ulcer, unspecified as acute or chronic, without hemorrhage or perforation (principal); D50.9 Iron deficiency anemia, unspecified; F32.9 Major depressive disorder, single episode, unspecified; F41.9 Anxiety disorder, unspecified; K21.9 Gastro-esophageal reflux disease without esophagitis; K44.9 Diaphragmatic hernia without obstruction or gangrene; E03.9 Hypothyroidism, unspecified; E28.2 Polycystic ovarian syndrome; J45.909 Unspecified asthma, uncomplicated; G62.9 Polyneuropathy, unspecified; Z79.899 Other long term (current) drug therapy; Z88.2 Allergy status to sulfonamides; Z83.3 Family history of diabetes mellitus; Z80.9 Family history of malignant neoplasm, unspecified; Z82.3 Family history of stroke
CPT/HCPCS: 36415; 84703; 88305; 88342

== ENCOUNTER → 2020-10-30 | Outpatient (CLI) | payer OTHER ==
[~2020-10-30] MED LIST changes: +SUCR1TAB36 PO
[2020-10-30 10:22] LABS: BASOPHILS # (AUTO) 0.1 10^3/uL (0.0-0.1); BASOPHILS % (AUTO) 1 % (0-10); EOSINOPHILS # (AUTO) 0.1 10^3/uL (0.0-0.3); EOSINOPHILS % (AUTO) 2 % (0-10); HEMATOCRIT 38 % (35-52); HEMOGLOBIN 11.6 g/dL (11.5-16.0); LYMPHOCYTES # (AUTO) 1.4 10^3/uL (1.0-4.0); LYMPHOCYTES % (AUTO) 26 % (12-44); MEAN CORPUSCULAR HEMOGLOBIN 26 pg (25-34); MEAN CORPUSCULAR HGB CONC 30 g/dL (32-36); MEAN CORPUSCULAR VOLUME 85 fL (80-99); MONOCYTES # (AUTO) 0.4 10^3/uL (0.0-1.0); MONOCYTES % (AUTO) 7 % (0-12); NEUTROPHILS # (AUTO) 3.5 10^3/uL (1.8-7.8); NEUTROPHILS % (AUTO) 64 % (42-75); PLATELET COUNT 311 10^3/uL (130-400); WHITE BLOOD COUNT 5.4 10^3/uL (4.3-11.0)
== END ==
LOC: LAB 09:56
PROVIDERS: ATTEND Family Medicine
DX: D50.9 Iron deficiency anemia, unspecified (principal)
CPT/HCPCS: 36415; 85025

== ENCOUNTER → 2021-01-22 | Outpatient (CLI) | payer OTHER ==
[2021-01-22 16:29] LABS: BASOPHILS % (AUTO) 1 % (0-10); EOSINOPHILS % (AUTO) 0 % (0-10); HEMATOCRIT 23 % (35-52); LYMPHOCYTES # (AUTO) 0.8 10^3/uL (1.0-4.0); LYMPHOCYTES % (AUTO) 18 % (12-44); MEAN CORPUSCULAR HEMOGLOBIN 19 pg (25-34); MEAN CORPUSCULAR HGB CONC 25 g/dL (32-36); MEAN CORPUSCULAR VOLUME 75 fL (80-99); MONOCYTES # (AUTO) 0.5 10^3/uL (0.0-1.0); MONOCYTES % (AUTO) 10 % (0-12); NEUTROPHILS # (AUTO) 3.3 10^3/uL (1.8-7.8); NEUTROPHILS % (AUTO) 70 % (42-75); PLATELET COUNT 379 10^3/uL (130-400); WHITE BLOOD COUNT 4.7 10^3/uL (4.3-11.0)
[2021-01-22 16:35] LABS: HEMOGLOBIN 5.8 g/dL (11.5-16.0)
== END ==
LOC: LAB 15:51
PROVIDERS: ATTEND Family Medicine
DX: D50.9 Iron deficiency anemia, unspecified (principal)
CPT/HCPCS: 36415; 82728; 83540; 83550; 85025

== ENCOUNTER → 2021-01-23 | Outpatient (CLI) | payer OTHER ==
[~2021-01-23] MED LIST changes: +NS IV 500 ML 500 ML IV SCH
[2021-01-23 11:25] VITALS: BP 124/69
[2021-01-23 11:36] VITALS: BP 108/66
[2021-01-23 12:30] VITALS: BP 122/76
[2021-01-23 13:25] VITALS: BP 112/56
== END ==
LOC: SDC 10:08
PROVIDERS: ATTEND Family Medicine
DX: D50.9 Iron deficiency anemia, unspecified (principal)
CPT/HCPCS: 36430; 86850; 86900; 86901; 86920; P9016

== ENCOUNTER 2021-02-06 12:54 | Outpatient (RCR) | payer OTHER ==
[2021-01-30] MEDS: FERRIC CARBOXYMALTOSE INJ 750 MG in NS (IVPB) 250 ML IV SCH (12:13)
[2021-01-30 12:40] VITALS: BP 148/82
[~2021-02-06] VITALS: Ht 162.6 cm; Wt 106.8 kg
[~2021-02-06 12:54] MED LIST changes: -NS IV 500 ML 500 ML IV SCH
[2021-02-06 13:45] VITALS: BP 136/76
[2021-02-06] MEDS: FERRIC CARBOXYMALTOSE INJ 750 MG in NS (IVPB) 250 ML IV SCH (13:50)
== END 2021-02-06 14:15 | disposition home or self-care (01) ==
LOC: SDC 12:54
PROVIDERS: ATTEND Family Medicine
DX: D50.9 Iron deficiency anemia, unspecified (principal)
CPT/HCPCS: 96365

== ENCOUNTER → 2021-03-25 | Outpatient (CLI) | payer SELFPAY ==
[2021-03-25 16:16] LABS: BASOPHILS # (AUTO) 0.1 10^3/uL (0.0-0.1); BASOPHILS % (AUTO) 1 % (0-10); EOSINOPHILS # (AUTO) 0.1 10^3/uL (0.0-0.3); EOSINOPHILS % (AUTO) 1 % (0-10); HEMATOCRIT 28 % (35-52); HEMOGLOBIN 7.9 g/dL (11.5-16.0); LYMPHOCYTES # (AUTO) 1.2 10^3/uL (1.0-4.0); LYMPHOCYTES % (AUTO) 16 % (12-44); MEAN CORPUSCULAR HEMOGLOBIN 23 pg (25-34); MEAN CORPUSCULAR HGB CONC 29 g/dL (32-36); MEAN CORPUSCULAR VOLUME 80 fL (80-99); MEAN PLATELET VOLUME 10.1 fL (9.0-12.2); MONOCYTES # (AUTO) 0.5 10^3/uL (0.0-1.0); MONOCYTES % (AUTO) 7 % (0-12); NEUTROPHILS # (AUTO) 5.4 10^3/uL (1.8-7.8); NEUTROPHILS % (AUTO) 74 % (42-75); PLATELET COUNT 316 10^3/uL (130-400); WHITE BLOOD COUNT 7.2 10^3/uL (4.3-11.0)
== END ==
LOC: LAB 15:51
PROVIDERS: ATTEND Family Medicine
DX: D64.9 Anemia, unspecified (principal)
CPT/HCPCS: 36415; 85025

== ENCOUNTER 2021-04-21 13:15 | Outpatient (RCR) | payer SELFPAY ==
[2021-04-21 13:46] LABS: BASOPHILS # (AUTO) 0.1 10^3/uL (0.0-0.1); BASOPHILS % (AUTO) 1 % (0-10); EOSINOPHILS # (AUTO) 0.1 10^3/uL (0.0-0.3); EOSINOPHILS % (AUTO) 1 % (0-10); HEMATOCRIT 28 % (35-52); HEMOGLOBIN 7.8 g/dL (11.5-16.0); LYMPHOCYTES # (AUTO) 1.2 10^3/uL (1.0-4.0); LYMPHOCYTES % (AUTO) 20 % (12-44); MEAN CORPUSCULAR HEMOGLOBIN 21 pg (25-34); MEAN CORPUSCULAR HGB CONC 28 g/dL (32-36); MEAN CORPUSCULAR VOLUME 74 fL (80-99); MEAN PLATELET VOLUME 10.5 fL (9.0-12.2); MONOCYTES # (AUTO) 0.4 10^3/uL (0.0-1.0); MONOCYTES % (AUTO) 7 % (0-12); NEUTROPHILS # (AUTO) 4.5 10^3/uL (1.8-7.8); NEUTROPHILS % (AUTO) 71 % (42-75); PLATELET COUNT 336 10^3/uL (130-400); WHITE BLOOD COUNT 6.3 10^3/uL (4.3-11.0)
[2021-04-21 14:39] LABS: ALANINE AMINOTRANSFERASE 10 U/L (0-55); ALKALINE PHOSPHATASE 62 U/L (40-136); BILIRUBIN,TOTAL 0.3 MG/DL (0.1-1.0); BUN/CREATININE RATIO 10; CALCIUM 8.8 MG/DL (8.5-10.1); CARBON DIOXIDE 21 MMOL/L (21-32); CHLORIDE 107 MMOL/L (98-107); CREATININE SERUM 0.89 MG/DL (0.60-1.30); GFR ESTIMATED > 60; GLUCOSE 115 MG/DL (70-105); POTASSIUM 3.9 MMOL/L (3.6-5.0); SODIUM 137 MMOL/L (135-145); TOTAL PROTEIN 6.7 GM/DL (6.4-8.2)
== END 2021-04-24 14:32 | disposition home or self-care (01) ==
LOC: ONC 13:15
PROVIDERS: ATTEND Internal Medicine Hematology & Oncology
DX: D50.0 Iron deficiency anemia secondary to blood loss (chronic) (principal)
CPT/HCPCS: 80053; 82728; 83540; 83550; 83615; 85025; G0463; 99214

== ENCOUNTER → 2021-08-03 | Outpatient (CLI) | payer SELFPAY ==
[2021-08-03 16:04] LABS: ALBUMIN 4.1 GM/DL (3.2-4.5); BILIRUBIN,TOTAL 0.4 MG/DL (0.1-1.0); CALCIUM 9.1 MG/DL (8.5-10.1); CREATININE SERUM 0.75 MG/DL (0.60-1.30); POTASSIUM 3.8 MMOL/L (3.6-5.0); TOTAL PROTEIN 6.9 GM/DL (6.4-8.2)
== END ==
LOC: LAB 14:45
PROVIDERS: ATTEND Family Medicine
DX: E03.9 Hypothyroidism, unspecified (principal); E55.9 Vitamin D deficiency, unspecified; M25.50 Pain in unspecified joint
CPT/HCPCS: 36415; 80053; 82306; 84439; 84443; 85652

== ENCOUNTER 2021-08-06 14:59 | Outpatient (RCR) | payer SELFPAY ==
[2021-05-13 15:25] LABS: BASOPHILS # (AUTO) 0.1 10^3/uL (0.0-0.1); BASOPHILS % (AUTO) 1 % (0-10); EOSINOPHILS # (AUTO) 0.2 10^3/uL (0.0-0.3); EOSINOPHILS % (AUTO) 2 % (0-10); HEMATOCRIT 31 % (35-52); HEMOGLOBIN 8.3 g/dL (11.5-16.0); LYMPHOCYTES # (AUTO) 1.4 10^3/uL (1.0-4.0); LYMPHOCYTES % (AUTO) 17 % (12-44); MEAN CORPUSCULAR HEMOGLOBIN 19 pg (25-34); MEAN CORPUSCULAR HGB CONC 27 g/dL (32-36); MEAN CORPUSCULAR VOLUME 72 fL (80-99); MEAN PLATELET VOLUME 10.4 fL (9.0-12.2); MONOCYTES # (AUTO) 0.6 10^3/uL (0.0-1.0); MONOCYTES % (AUTO) 8 % (0-12); NEUTROPHILS # (AUTO) 5.9 10^3/uL (1.8-7.8); NEUTROPHILS % (AUTO) 72 % (42-75); PLATELET COUNT 331 10^3/uL (130-400); WHITE BLOOD COUNT 8.2 10^3/uL (4.3-11.0)
[2021-06-11 14:57] LABS: BASOPHILS # (AUTO) 0.1 10^3/uL (0.0-0.1); BASOPHILS % (AUTO) 1 % (0-10); EOSINOPHILS # (AUTO) 0.2 10^3/uL (0.0-0.3); EOSINOPHILS % (AUTO) 2 % (0-10); HEMATOCRIT 42 % (35-52); HEMOGLOBIN 12.6 g/dL (11.5-16.0); LYMPHOCYTES # (AUTO) 1.3 10^3/uL (1.0-4.0); LYMPHOCYTES % (AUTO) 19 % (12-44); MEAN CORPUSCULAR HEMOGLOBIN 25 pg (25-34); MEAN CORPUSCULAR HGB CONC 30 g/dL (32-36); MEAN CORPUSCULAR VOLUME 82 fL (80-99); MEAN PLATELET VOLUME 10.2 fL (9.0-12.2); MONOCYTES # (AUTO) 0.5 10^3/uL (0.0-1.0); MONOCYTES % (AUTO) 7 % (0-12); NEUTROPHILS % (AUTO) 72 % (42-75); PLATELET COUNT 263 10^3/uL (130-400)
[2021-07-08 14:01] LABS: BASOPHILS % (AUTO) 1 % (0-10); EOSINOPHILS # (AUTO) 0.1 10^3/uL (0.0-0.3); EOSINOPHILS % (AUTO) 2 % (0-10); HEMATOCRIT 39 % (35-52); HEMOGLOBIN 12.3 g/dL (11.5-16.0); LYMPHOCYTES # (AUTO) 1.4 10^3/uL (1.0-4.0); LYMPHOCYTES % (AUTO) 27 % (12-44); MEAN CORPUSCULAR HEMOGLOBIN 27 pg (25-34); MEAN CORPUSCULAR HGB CONC 31 g/dL (32-36); MEAN CORPUSCULAR VOLUME 86 fL (80-99); MEAN PLATELET VOLUME 10.3 fL (9.0-12.2); MONOCYTES # (AUTO) 0.6 10^3/uL (0.0-1.0); MONOCYTES % (AUTO) 10 % (0-12); NEUTROPHILS # (AUTO) 3.2 10^3/uL (1.8-7.8); NEUTROPHILS % (AUTO) 60 % (42-75); PLATELET COUNT 281 10^3/uL (130-400); WHITE BLOOD COUNT 5.4 10^3/uL (4.3-11.0)
[~2021-08-06 14:59] MED LIST changes: +FERRIC CARBOXYMALTOSE (CANCER) 750 MG in NS (IVPB) CANCER CENTER 250 ML IV SCH
[2021-08-06 15:14] LABS: BASOPHILS # (AUTO) 0.1 10^3/uL (0.0-0.1); BASOPHILS % (AUTO) 1 % (0-10); EOSINOPHILS # (AUTO) 0.1 10^3/uL (0.0-0.3); EOSINOPHILS % (AUTO) 1 % (0-10); HEMATOCRIT 44 % (35-52); HEMOGLOBIN 14.6 g/dL (11.5-16.0); LYMPHOCYTES # (AUTO) 1.2 10^3/uL (1.0-4.0); LYMPHOCYTES % (AUTO) 12 % (12-44); MEAN CORPUSCULAR HEMOGLOBIN 28 pg (25-34); MEAN CORPUSCULAR HGB CONC 33 g/dL (32-36); MEAN CORPUSCULAR VOLUME 85 fL (80-99); MEAN PLATELET VOLUME 10.5 fL (9.0-12.2); MONOCYTES # (AUTO) 0.5 10^3/uL (0.0-1.0); MONOCYTES % (AUTO) 5 % (0-12); NEUTROPHILS # (AUTO) 7.8 10^3/uL (1.8-7.8); NEUTROPHILS % (AUTO) 81 % (42-75); PLATELET COUNT 293 10^3/uL (130-400); WHITE BLOOD COUNT 9.6 10^3/uL (4.3-11.0)
== END 2021-08-11 | disposition home or self-care (01) ==
LOC: ONC 14:59
PROVIDERS: ATTEND Internal Medicine Hematology & Oncology
DX: Z51.11 Encounter for antineoplastic chemotherapy (principal); D50.0 Iron deficiency anemia secondary to blood loss (chronic)
CPT/HCPCS: 82728; 85025; 96365; 99213

== ENCOUNTER 2021-08-24 13:50 | Outpatient (RCR) | payer SELFPAY ==
[~2021-08-24 13:50] MED LIST changes: +CYCL10TA25 PO
== END 2021-10-09 | disposition home or self-care (01) ==
LOC: ONC 13:50
PROVIDERS: ATTEND Internal Medicine Hematology & Oncology
DX: D50.0 Iron deficiency anemia secondary to blood loss (chronic) (principal)
CPT/HCPCS: 96365

== ENCOUNTER → 2023-04-21 | Outpatient (CLI) | payer BC ==
[~2023-04-21] MED LIST changes: -FERRIC CARBOXYMALTOSE (CANCER) 750 MG in NS (IVPB) CANCER CENTER 250 ML IV SCH
--- NOTE | 2023-04-21 18:03 | Diagnostic Imaging Report ---
PROCEDURE: US non-OB pelvis comp/trans. TECHNIQUE: Multiple real-time grayscale images were obtained of the pelvis in various projections endovaginally. Transabdominal imaging was also performed. INDICATION: Irregular menses. FINDINGS: Uterus measures 8.0 x 3.8 x 5.4 cm. There appear to be some nabothian cysts in the cervix. Endometrium is thickened measuring 1.6 cm. The right ovary has normal blood flow. There are several cysts, largest measuring 4 cm in diameter. Left ovary has normal vascularity. There are several small follicular cysts. There is no free fluid. IMPRESSION: Bilateral follicular cysts. Thickened endometrium. Endometrial hyperplasia cannot be excluded. Dictated by: Dictated on workstation # [id number]
== END ==
LOC: RAD 14:51
PROVIDERS: ATTEND Nurse Practitioner Women's Health
DX: N83.02 Follicular cyst of left ovary (principal); N83.01 Follicular cyst of right ovary; R93.89 Abnormal findings on diagnostic imaging of other specified body structures; N92.6 Irregular menstruation, unspecified
CPT/HCPCS: 76830; 76856